=== PATIENT | male | born 1930 | race Caucasian/White ===

== ENCOUNTER 2017-03-25 16:14 | Emergency (ER) | payer MEDICARE, BC, OTHER ==
[2017-03-25 16:28] VITALS: TEMP 99
[2017-03-25] MEDS ORDERED: ONDANSETRON HCL 4 MG/2 ML SOL IV ONE ×2 (16:31→17:35)
[2017-03-25] MEDS ORDERED: ONDANSETRON HCL 4 MG/2 ML SOL ONE ×2 (16:31→17:35)
[2017-03-25] MEDS ORDERED: SODIUM CHLORIDE 0.9% 500 ML SOL IV SCH (16:45)
[2017-03-25 16:53] LABS: BASOPHILS % (AUTO) 0 % (0-3); EOSINOPHILS % (AUTO) 2 % (0-9); HEMATOCRIT 41 % (39-53); MEAN CORPUSCULAR HGB CONC 36.1 gm/dl (32.0-36.0); MEAN CORPUSCULAR VOLUME 97 fL (80-100); MONOCYTES % (AUTO) 6.4 % (0-12); NEUTROPHILS % (AUTO) 79.1 % (37-80)
[2017-03-25 17:07] LABS: ALBUMIN 3.9 gm/dl (3.4-5.0); CALCIUM 9.3 mg/dl (8.5-10.1); POTASSIUM 3.6 mMol/L (3.5-5.1)
[2017-03-25 17:13] LABS: NORMAL RBCS PRESENT
[2017-03-25] MEDS ORDERED: NITROGLYCERIN 0.4 MG TAB SL ONE (17:20)
[2017-03-25] MEDS ORDERED: ASPIRIN 81 MG CHEWABLE CTB ONE (17:20)
[2017-03-25] MEDS ORDERED: SODIUM CHLORIDE 0.9% FLUSH 10 ML SOL IV PRN (18:07)
[2017-03-25] MEDS ORDERED: NITROGLYCERIN 0.4 MG TAB SL PRN (18:07)
[2017-03-25 18:15] VITALS: BP 156/111; PULSE 103; RESP 18; O2SAT 97
== END 2017-03-25 17:47 | disposition short-term general hospital (02) | DRG 282 ==
LOC: ED 16:14
DX: I21.4 Non-ST elevation (NSTEMI) myocardial infarction (principal); E11.9 Type 2 diabetes mellitus without complications; R06.02 Shortness of breath; Z79.01 Long term (current) use of anticoagulants
CPT/HCPCS: 80053; 83880; 84484; 85025; 85610; 93005; 99291; J2405